=== PATIENT | female | born 1990 | race African-American/Black ===

== ENCOUNTER 2017-05-09 22:00 | Inpatient (IN) | payer OTHER ==
[~2017-05-09] VITALS: Ht 165.1 cm; Wt 156.5 kg
[2017-05-09] MEDS ORDERED: LACTATED RINGERS 1,000 ML IV SCH (22:35)
[2017-05-09] MEDS ORDERED: ePHEDrine 50 MG/ML VIAL IV ONE (22:50)
[2017-05-09] MEDS ORDERED: ONDANSETRON 4 MG/2 ML VIAL IVP ONE (22:50)
[2017-05-09 22:56] LABS: HEMATOCRIT 36.6 % (36-48); HEMOGLOBIN 11.7 g/dL (12.0-16.0); MEAN CORPUSCULAR HEMOGLOBIN 24 pg (27-31); MEAN CORPUSCULAR HGB CONC 32 g/dL (33-37); MEAN CORPUSCULAR VOLUME 75 fL (80-94); PLATELET COUNT (AUTO) 261 K/uL (140-450); RED BLOOD CELL COUNT(AUTO) 4.87 MIL/uL (4.20-5.40); RED CELL DISTRIBUTION WIDTH 15.8 % (11.6-13.7); WHITE BLOOD COUNT (AUTO) 20.4 K/uL (4.8-10.8)
[2017-05-09] MEDS ORDERED: ceFAZolin 1,000 MG VIAL ONE (23:06)
[2017-05-09] MEDS ORDERED: CITRIC ACID/SODIUM CITRATE 30 ML UDC ONE (23:06)
[2017-05-09] MEDS ORDERED: fentaNYL 0.05 MG/ML VIAL ONE (23:08)
[2017-05-09] MEDS ORDERED: MIDAZOLAM 2 MG/2 ML VIAL ONE (23:08)
[2017-05-09 23:09] LABS: BARBITURATE, URINE NEG. ng/ml (NEG <=200); BENZODIAZEPINE, URINE NEG. ng/mL (NEG <=200); CANNABINOID, URINE NEG. ng/mL (NEG <=50); COCAINE, URINE NEG. ng/mL (NEG <=300); OPIATE, URINE NEG. ng/mL (NEG <=2000); PHENCYCLIDINE SCREEN,URINE NEG. ng/mL (NEG <=25)
[2017-05-09] MEDS ORDERED: KETAMINE 500 MG/5 ML VIAL ONE (23:09)
[2017-05-09] MEDS ORDERED: MORPHINE PRES FREE 10 MG/10 ML AMP IV ONE (23:09)
[2017-05-09 23:10] LABS: ALBUMIN 2.2 g/dL (3.4-5.0); ANION GAP 19.3 (8-16); CARBON DIOXIDE 19.8 mmol/L (21-32); CREATININE 0.6 mg/dL (0.6-1.3); POTASSIUM 4.1 mmol/L (3.5-5.1); TOTAL BILIRUBIN 0.6 mg/dL (0.0-1.0)
[2017-05-09] MEDS ORDERED: CITRIC ACID/SODIUM CITRATE 30 ML UDC PO ONE (23:15)
[2017-05-09 23:16] LABS: LYMPHOCYTES % (MANUAL) 6 % (20-46); MONOCYTES % (MANUAL) 8 % (5-12)
[2017-05-09 23:21] LABS: APPEARANCE,URINE SL CLOUDY (CLEAR); BILIRUBIN,URINE NEGATIVE (NEGATIVE); BLOOD, URINE NEGATIVE (NEGATIVE); COLOR,URINE YELLOW (YELLOW); LEUKOCYTE ESTERASE ,URINE 1+ (NEGATIVE); NITRITE, URINE POSITIVE (NEGATIVE); PH,URINE 6.5 (5.0-9.0); UGLUCOSE NEGATIVE (NEGATIVE)
[2017-05-09] MEDS ORDERED: METHYLERGONOVINE 0.2 MG/ML AMP ONE (23:25)
[2017-05-09] MEDS ORDERED: OXYTOCIN 10 UNITS/ML VIAL ONE (23:25)
[2017-05-09 23:34] LABS: RBC,URINE 3-10 (FEW) /HPF (0-5)
[2017-05-09] MEDS ORDERED: METHYLERGONOVINE 0.2 MG/ML AMP IM PRN (23:35)
[2017-05-09] MEDS ORDERED: MEASLES, MUMPS, AND RUBELLA 1 VIAL SQVAC PRN (23:35)
[2017-05-09] MEDS ORDERED: SIMETHICONE 80 MG TAB.CHEW PO PRN (23:35)
[2017-05-09] MEDS ORDERED: TEMAZEPAM 15 MG CAP PO PRN (23:35)
[2017-05-09] MEDS ORDERED: IBUPROFEN 800 MG TAB PO PRN (23:35)
[2017-05-09] MEDS ORDERED: TRIMETHOBENZAMIDE 200 MG/2 ML SYR IM PRN (23:35)
[2017-05-09] MEDS ORDERED: HYDROcodone/APAP 5/325 MG 1 TAB TAB PO PRN (23:35)
[2017-05-10 00:02] VITALS: BP 129/64
[2017-05-10] MEDS ORDERED: ONDANSETRON 4 MG/2 ML VIAL IVP PRN (00:15)
[2017-05-10] MEDS ORDERED: diphenhydrAMINE 50 MG/ML VIAL IVP PRN (00:15)
[2017-05-10] MEDS ORDERED: OXYTOCIN 10 UNITS/ML VIAL ONE ×2 (02:04→08:56)
[2017-05-10] MEDS ORDERED: CITRIC ACID/SODIUM CITRATE 30 ML UDC PO ONE (02:20)
[2017-05-10] MEDS: OXYTOCIN 20 UNITS in LACTATED RINGERS 1,000 ML IV SCH ×2 (02:39→09:00)
[2017-05-10] MEDS: KETOROLAC 30 MG/ML VIAL IVP PRN ×2 (03:48→13:04)
[2017-05-10 06:22] LABS: HEMATOCRIT 33.2 % (36-48); HEMOGLOBIN 10.7 g/dL (12.0-16.0); MEAN CORPUSCULAR HEMOGLOBIN 24 pg (27-31); MEAN CORPUSCULAR HGB CONC 32 g/dL (33-37); MEAN CORPUSCULAR VOLUME 75 fL (80-94); PLATELET COUNT (AUTO) 214 K/uL (140-450); RED BLOOD CELL COUNT(AUTO) 4.42 MIL/uL (4.20-5.40); RED CELL DISTRIBUTION WIDTH 15.5 % (11.6-13.7); WHITE BLOOD COUNT (AUTO) 15.5 K/uL (4.8-10.8)
[2017-05-10 07:04] LABS: LYMPHOCYTES % (MANUAL) 4 % (20-46); MONOCYTES % (MANUAL) 9 % (5-12)
[2017-05-10 07:05] LABS: EOSINOPHILS % (MANUAL) 2 % (0-4)
[2017-05-10] MEDS ORDERED: LACTATED RINGERS 1,000 ML IV SCH (10:40)
--- NOTE | 2017-05-10 10:53 | NUR ---
PATIENT HAS BEEN SCREENED AND CATEGORIZED LOW NUTRITION RISK. PATIENT WILL BE SEEN WITHIN 7 DAYS OF ADMISSION. 05/16/17 MONICA SAMUEL MBA, RD
[2017-05-10] MEDS ORDERED: diphenhydrAMINE 50 MG CAP PO ONE (19:17)
[2017-05-10] MEDS: oxyCODONE/APAP 5/325 MG 1 TAB TAB PO PRN (20:53)
[2017-05-10] MEDS ORDERED: DOCUSATE SOD/SENNA 50/8.6 MG 1 TAB PO SCH (21:00)
[2017-05-11] MEDS: oxyCODONE/APAP 5/325 MG 1 TAB TAB PO PRN ×3 (02:33→20:24)
[2017-05-11] MEDS ORDERED: IBUP-2213 PO (12:22)
[2017-05-11 15:07] LABS: HEPATITIS B SURFACE AB Reactive (.)
== END 2017-05-12 00:45 | disposition left against medical advice (07) | DRG 540 ==
LOC: MLD 22:00 → MFCC 05-10 01:05
PROVIDERS: ADMIT Obstetrics & Gynecology; ATTEND Obstetrics & Gynecology
PROC: 10D00Z1 Extraction of Products of Conception, Low, Open Approach (ICD-10-PCS; principal; 2017-05-09 23:00)
DX: O76 Abnormality in fetal heart rate and rhythm complicating labor and delivery (principal); Z68.43 Body mass index [BMI] 50.0-59.9, adult; O34.211 Maternal care for low transverse scar from previous cesarean delivery; O99.344 Other mental disorders complicating childbirth; O99.214 Obesity complicating childbirth; E66.01 Morbid (severe) obesity due to excess calories; Z3A.40 40 weeks gestation of pregnancy; Z37.0 Single live birth; Z28.21 Immunization not carried out because of patient refusal
CPT/HCPCS: 36415; 80053; 80305; 81001; 85025; 86592; 86706; 86762; 86886; 86900; 86901; 87086; 87186; J0690; J1885; J2210; J2250; J2270; J2405; J2590; J3010; J7060; J7120; Q0163